=== PATIENT | male | born 1965 | race Caucasian/White ===

== ENCOUNTER 2017-02-22 10:13 | Emergency (ER) | payer OTHER ==
[~2017-02-22] VITALS: Ht 188 cm; Wt 100.0 kg
[~2017-02-22 10:13] MED LIST: AMLO1POW2 PO; DEXT237L PO; FEXO60TA9 PO; GUAI1TBM11 PO; LOSA25TA5 PO; NAPR375T3 PO
[2017-02-22] MEDS ORDERED: HYDROmorphone 1 MG/ML, 1ML ONE (10:33)
[2017-02-22] MEDS ORDERED: DIAZEPAM 5 MG TABLET ONE (10:34)
[2017-02-22] MEDS ORDERED: KETOROLAC 30 MG/1 ML ONE (10:34)
[2017-02-22] MEDS ORDERED: KETOROLAC 30 MG/1 ML IVPush ONE (11:00)
[2017-02-22] MEDS ORDERED: HYDROmorphone 1 MG/ML, 1ML IVPush ONE (11:00)
[2017-02-22] MEDS ORDERED: DIAZEPAM 5 MG/ML, 2ML IVPush ONE (11:00)
[2017-02-22] MEDS ORDERED: DIAZEPAM 5 MG TABLET PO ONE (11:00)
[2017-02-22 12:33] VITALS: BP 183/117
== END 2017-02-22 12:36 | disposition home or self-care (01) ==
LOC: ED 10:58
DX: M54.5 Low back pain (principal); I10 Essential (primary) hypertension; F17.210 Nicotine dependence, cigarettes, uncomplicated
CPT/HCPCS: 74176; 96374; 96375; 99284; J1170; J1885